=== PATIENT | female | born 1965 | race Caucasian/White ===

== ENCOUNTER 2017-08-18 21:53 | Emergency (ER) | payer OTHER ==
[~2017-08-18] VITALS: Ht 170.2 cm; Wt 104.3 kg
[~2017-08-18 21:53] MED LIST: AUGMENTIN 875-1 EACH PO; PAROXETINE HC37.5 MG PO; VENLAFAXINE H37.5 M1 PO
[2017-08-18] MEDS ORDERED: TRAMADOL HCL50 MG PO (22:42)
[2017-08-18] MEDS ORDERED: CRUTCH1 EACH (22:42)
== END 2017-08-18 23:03 | disposition home or self-care (01) ==
LOC: ED 21:53
DX: S82.61XA Displaced fracture of lateral malleolus of right fibula, initial encounter for closed fracture (principal); Z79.899 Other long term (current) drug therapy; W18.40XA Slipping, tripping and stumbling without falling, unspecified, initial encounter
CPT/HCPCS: 73610; 99283

== ENCOUNTER 2019-02-19 07:49 | Day surgery (SDC) | payer OTHER ==
[~2019-02-19] VITALS: Ht 172.7 cm; Wt 104.3 kg
[~2019-02-19 07:49] MED LIST changes: +CRUTCH1 EACH; +TRAMADOL HCL50 MG PO
[2019-02-19] MEDS ORDERED: DULOXETINE HCL30 MG PO (08:07)
[2019-02-19] MEDS ORDERED: WELLBUTRIN SR100 MG PO (08:08)
--- NOTE | 2019-02-19 09:09 | NUR ---
02/19/19 0909 Tiesha Ceron 0903- PT ARRIVES TO PACU AROUSABLE TO VOICE. FALLS BACK TO SLEEP INSTANTLY WHEN NOT BEING TALKED TO. RESP EVEN AND UNLABORED. OXYGEN SAT LOW TO MID 90'S ON 3L VIA NC. 0908- OXYGEN TITRATED OFF.
--- NOTE | 2019-02-19 10:15 | NUR ---
TOO SLEEPY BROUGHT BACK FROM PACU. SITTING UP IN BED DRINKING COFFEE TALKING WITH FAMILY. STATES SHE FEELS LIKE SHE NEEDS MORE TIME.
--- NOTE | 2019-02-20 06:26 | OR ---
[facility] [address] [place], [place] [address] Signed DATE OF OPERATION: 02/19/2019 SURGEON: Gerry William MD PREOPERATIVE DIAGNOSIS: Father with multiple colonic polyps in his 60s. POSTOPERATIVE DIAGNOSIS: 3 mm polyp at 10 cm. PROCEDURE: Colonoscopy with cold biopsy. ESTIMATED BLOOD LOSS: None. INDICATIONS: Pernell is a 53-year-old female who comes for her initial colonoscopy. Her father started with polyps in his 60s and went back multiple times over multiple years. Each time, he had polyps removed. Pernell herself has no lower GI complaints. She is very aware that polyps grow and become cancers. She now has a family history. She will be coming every 5 years. In the office, I gave her a pamphlet on colonoscopy. We looked at that together in detail. She understands colonoscopy along with its risks including, but not limited to gas, bloating, crampy abdominal pain, bleeding, perforation requiring surgery, and missed diagnosis. She also understands the need for IV conscious sedation. She had expressed understanding and wished to proceed. PROCEDURE NOTE: Pernell was taken into our endoscopy suite and placed in the left lateral decubitus position. She was given a total of 6 mg of Versed and 100 mcg of fentanyl to cover the case. A digital rectal exam was performed and this was unremarkable. The adult colonoscope was introduced and advanced under direct visualization of camera into the cecum itself. It took some extra sedation and abdominal compression in order to advance the scope. Her prep was good. The scope was slowly withdrawn. A couple areas of liquid stool, most of which was suctioned out. We saw just a tiny 3 mm polyp in the mid rectum and it was easily removed with the help of the cold biopsy forceps. Upon retroflexion of the scope, there was no additional pathology noted above the anal canal. After this, the gas was suctioned out and colonoscope removed. Pernell tolerated procedure quite well. Electronically Signed By: GERRY WILLIAM MD 02/20/19 0626 PATIENT NAME: PERNELL PENALOZA OPERATIVE REPORT DATE OF : 65 REPORT #: [id number] PHYSICIAN: GERRY WILLIAM MD PCP: KRISTEN EPSTEIN PA-C REPORT IS CONFIDENTIAL AND NOT TO BE RELEASED WITHOUT AUTHORIZATION [address] [address] Signed RECOMMENDATIONS: I will see Pernell back in my office in 7 to 14 days to review her results. Due to her family history, she will need colonoscopy every 5 years. Gerry William MD ALB/MODL /[id number] cc: KATHERINE Morris MD Copies: KRISTEN EPSTEIN PA-C, ANDREW L MD ~ Electronically Signed By: GERRY WILLIAM MD 02/20/19 0626 PATIENT NAME: PERNELL PENALOZA OPERATIVE REPORT DATE OF : 65 REPORT #: [id number] PHYSICIAN: GERRY WILLIAM MD PCP: KRISTEN EPSTEIN PA-C REPORT IS CONFIDENTIAL AND NOT TO BE RELEASED WITHOUT AUTHORIZATION
--- NOTE | 2019-02-20 15:28 | PATH ---
[facility] [address] [id number] Signed SPECIMEN(S): A COLON POLYP AT 10 CM SPECIMEN SOURCE: A. COLON POLYP AT 10 CM CLINICAL HISTORY: Rectal polyps. MICROSCOPIC DESCRIPTION: Histologic sections of all submitted blocks are examined by light microscopy. These findings, together with the gross examination, support the pathologic diagnosis. FINAL PATHOLOGIC DIAGNOSIS: Mucosa, colon at 10 cm, biopsy: - Hyperplastic polyp. LJA:cml:C2NR GROSS DESCRIPTION: The specimen, labeled "SB, colon polyp at 10 cm," is received in formalin and consists of two pink-galvan soft tissue fragment(s) that measure 0.2-0.3 cm in greatest dimension. The specimen is entirely submitted in cassette (A1). JS (under the direct supervision of a pathologist) The Gross Description was prepared using a voice recognition system. The report was reviewed for accuracy; however, sound-alike word errors, addition and/or deletions may occur. If there is any question about this report, please contact Client Services. PERFORMING LABORATORY: The technical component was performed by [facility], [address] [place] [id number] (Care Tech: Malika Teixeira MD; CLIA# [id number]). [facility], [address] [address] (Care Tech: Curtis Owusu MD; CLIA# [id number]). Diagnostician: Curtis Owusu MD Pathologist Electronically Signed 02/20/2019 PATIENT NAME: PERNELL PENALOZA PATHOLOGY DATE OF : 65 REPORT #: [id number] PHYSICIAN: SEE PATHOLOGY PCP: KRISTEN EPSTEIN PA-C REPORT IS CONFIDENTIAL AND NOT TO BE RELEASED WITHOUT AUTHORIZATION [address] [place], [place] [address] Signed Copies: ~ PATIENT NAME: PERNELL PENALOZA PATHOLOGY DATE OF : 65 REPORT #: [id number] PHYSICIAN: SEE PATHOLOGY PCP: KRISTEN EPSTEIN PA-C REPORT IS CONFIDENTIAL AND NOT TO BE RELEASED WITHOUT AUTHORIZATION
== END 2019-02-19 10:40 | disposition home or self-care (01) ==
LOC: OPS 07:49 → DS 07:57 → OPS 09:00 → DS 09:00 → OPS 10:40
PROVIDERS: Colon & Rectal Surgery
PROC: 0DBP8ZZ Excision of Rectum, Via Natural or Artificial Opening Endoscopic (ICD-10-PCS; principal; 2019-02-19 09:00)
DX: Z12.11 Encounter for screening for malignant neoplasm of colon (principal); K63.5 Polyp of colon; Z83.71 Family history of colonic polyps; Z79.899 Other long term (current) drug therapy
CPT/HCPCS: J2250; J3010; J7120